=== PATIENT | female | born 1955 | race Caucasian/White ===

== ENCOUNTER 2017-03-16 15:52 | Emergency (ER) | payer OTHER ==
[2017-03-16 16:00] VITALS: BP 139/86; PULSE 86; TEMP 98.6; BMI 42.0
--- NOTE | 2017-03-16 16:16 | PDOC ---
Attending Attestation - Resident Resident Name: Franc Birmingham - ED Attending Attestation I have performed the following: I have examined & evaluated the patient, The case was reviewed & discussed with the resident, I agree w/resident's findings & plan, Exceptions are as noted - HPI HPI: 03/16/17 16:14 Slipped on wet floor, hit head, no loc - Physicial Exam PE: 03/16/17 16:15 Moves easily, no board or collar. Awake Alert Oriented NAD - Medical Decision Making 03/16/17 16:[address] Birmingham Assessment and Plan
[2017-03-16] MEDS ORDERED: IBUPROFEN 400 MG TABLET (FP) PO ONE ×2 (16:36→16:50)
--- NOTE | 2017-03-16 16:43 | PDOC ---
History of Present Illness - General Chief Complaint: Injury Stated Complaint: FALL Time Seen by Provider: 03/16/17 16:07 History Source: Patient Exam Limitations: Language Barrier - History of Present Illness Initial Comments: 03/16/17 16:37 Patient is a 61F with history of asthma, migraines and htn here today complaining of a fall. She had a witnessed slip and fall on a wet floor in a grocery store. She did not lose consciousness, remembers the event and did not vomit. She is complaining of head pain, arm pain, hip pain and leg pain. She was able to walk after the event and to and from the bathroom. She denies chest pain, shortness of breath, abdominal pain and neck pain. Past History - Past Medical History Allergies/Adverse Reactions: Allergies Allergy/AdvReac Type Severity Reaction Status Date / Time No Known Allergies Allergy Verified 03/16/17 15:53 Home Medications: Ambulatory Orders NK [No Known Home Medication] 03/16/17 Asthma: Yes HTN: Yes Other medical history: migraine - Suicide/Smoking/Psychosocial Hx Smoking History: Never smoked Have you smoked in the past 12 months: No Information on smoking cessation initiated: No Hx Alcohol Use: No Drug/Substance Use Hx: No Review of Systems - Review of Systems Comments:: 03/16/17 16:42 GENERAL/CONSTITUTIONAL: No fever or chills. No weakness. HEAD, EYES, EARS, NOSE AND THROAT: No change in vision. No sore throat. CARDIOVASCULAR: No chest pain or shortness of breath RESPIRATORY: No cough, wheezing, or hemoptysis. GASTROINTESTINAL: No nausea, vomiting, diarrhea or constipation. GENITOURINARY: No dysuria, frequency, or change in urination. MUSCULOSKELETAL: Positive for head, arm, wrist, hip and leg pain. No neck pain SKIN: No rash NEUROLOGIC: Positive for headache. Negative for vertigo, loss of consciousness, or change in strength/sensation. ENDOCRINE: No increased thirst. No abnormal weight change ALLERGIC/IMMUNOLOGIC: No hives or skin allergy. *Physical Exam - Vital Signs Last Vital Signs Temp Pulse Resp BP Pulse Ox 98.6 F 86 20 139/86 97 03/16/17 15:57 03/16/17 15:57 03/16/17 15:57 03/16/17 15:57 03/16/17 15:57 - Physical Exam Comments: 03/16/17 16:47 GENERAL: Awake, alert, and fully oriented, in no acute distress HEAD: No signs of trauma, normocephalic, atraumatic EYES: PERRLA, EOMI, sclera anicteric, conjunctiva clear ENT: Auricles normal inspection, hearing grossly normal, nares patent, oropharynx clear without exudates. Moist mucosa NECK: Normal ROM, supple, no lymphadenopathy, JVD, or masses LUNGS: No distress, speaks full sentences, clear to auscultation bilaterally HEART: Regular rate and rhythm, normal S1 and S2, no murmurs, rubs or gallops, peripheral pulses normal and equal bilaterally. ABDOMEN: Soft, nontender, normoactive bowel sounds. No guarding, no rebound. No masses EXTREMITIES: Normal inspection, Normal range of motion, no edema. No clubbing or cyanosis. LEFT ARM: Tender to palpation on ulnar side of wrist. Neurovascularly intact, normal range of motion and normal strength. Left elbow tenderness, normal range of motion and normal strength HIPS: Nontender to palpation, able to range normally, stable pelvis LEFT LEG: Tender to palpation on the malleolus, stable, no bruising, full range of motion, able to walk more than 3 steps. NEUROLOGICAL: Cranial nerves II through XII grossly intact. Normal speech, normal gait, no focal sensorimotor deficits SKIN: Warm, Dry, normal turgor, no rashes or lesions noted. ED Treatment Course - RADIOLOGY Radiology Studies Ordered: Category Date Time Status ELBOW-LEFT [RAD] Stat Radiology 03/16/17 16:35 Ordered WRIST W/HAND-LEFT* [RAD] Stat Radiology 03/16/17 16:35 Ordered Medical Decision Making - Medical Decision Making 03/16/17 16:50 Patient is a 61F here today complaining of a fall. Vital signs stable and normal. Physical exam is reassuring. Head is cleared by [place] Rule. Neck is cleared by NEXUS rule. No snuffbox tenderness. Will evaluate with x-rays of foot /ankle, elbow and wrist. 03/16/17 17:51 X-rays all negative. Will discharge home. *DC/Admit/Observation/Transfer Diagnosis at time of Disposition: Fall Qualifiers: Encounter type: initial encounter Qualified Code(s): W19.XXXA - Unspecified fall, initial encounter - Discharge Dispostion Disposition: HOME Condition at time of disposition: Good Admit: No - Referrals Referrals: STAFF,NOT ON [Primary Care Provider] - - Patient Instructions Printed Discharge Instructions: DI for Wrist Sprain, DI for Ankle Sprain
[2017-03-16] MEDS ORDERED: KETOROLAC TROMETHAMINE 60 MG/2 ML VIAL IM ONE (18:19)
[2017-03-16] MEDS ORDERED: KETOROLAC TROMETHAMINE 60 MG/2 ML VIAL ONE (18:21)
== END 2017-03-16 18:29 | disposition home or self-care (01) ==
LOC: JER 15:52
PROC: 3E0233Z Introduction of Anti-inflammatory into Muscle, Percutaneous Approach (ICD-10-PCS; principal; 2017-03-16)
DX: M25.539 Pain in unspecified wrist (principal); J45.909 Unspecified asthma, uncomplicated
CPT/HCPCS: 73070-TC-LT; 73110-TC-LT; 73130-TC-LT; 73610-TC-LT; 73630-TC-LT; 99281-25